=== PATIENT | female | born 1955 | race Hispanic/Latino ===

== ENCOUNTER 2022-08-03 23:36 | Emergency (ER) | payer MEDICARE ==
[~2022-08-03] VITALS: Ht 154.9 cm; Wt 79.5 kg
[2022-08-04] LABS: BASOPHILS % (AUTO) 0.5 % (0.0-5.0); EOSINOPHILS % (AUTO) 1.6 % (0.0-8.0); HEMATOCRIT 43.8 % (36-48); LYMPHOCYTES % (AUTO) 28.1 % (21.0-51.0); MEAN CORPUSCULAR HEMOGLOBIN 31.7 pg (27.0-33.0); MEAN CORPUSCULAR HGB CONC 34.5 g/dL (32.0-36.0); MONOCYTES % (AUTO) 8.4 % (3.0-13.0); NEUTROPHILS % (AUTO) 61.1 % (40.0-77.0); PLATELET COUNT (AUTO) 245 K/uL (130-400); RED BLOOD CELL COUNT(AUTO) 4.76 MIL/uL (4.00-5.50); RED CELL DISTRIBUTION WIDTH 12.3 % (11.0-15.5); WHITE BLOOD COUNT (AUTO) 12.5 K/uL (4.8-10.8)
[2022-08-04 00:07] LABS: INR 0.93 (0.85-1.15); PROTHROMBIN TIME 9.8 SEC (9.6-11.6)
[2022-08-04 00:08] LABS: PARTIAL THROMBOPLASTIN TIME 27.7 SEC (26.3-35.5)
[2022-08-04 00:10] LABS: POTASSIUM 3.8 mmol/L (3.5-5.1)
[2022-08-04 00:13] LABS: ALBUMIN 4.1 g/dL (3.5-5.0); MAGNESIUM 1.8 mg/dL (1.80-2.40); TOTAL PROTEIN, SERUM 8.3 g/dL (6.0-8.3)
[2022-08-04 00:23] LABS: APPEARANCE,URINE CLOUDY (CLEAR); BILIRUBIN,URINE NEGATIVE (NEGATIVE); COLOR,URINE LIGHT-YELLOW (YELLOW); GLUCOSE, URINE (UA) NEGATIVE (NEGATIVE); KETONES,URINE NEGATIVE (NEGATIVE); LEUKOCYTE ESTERASE ,URINE 25 Leu/uL (NEGATIVE); NITRATE,URINE NEGATIVE (NEGATIVE); OCCULT BLOOD,URINE NEGATIVE (NEGATIVE); PH,URINE 5.5 (5.0-8.0); PROTEIN,URINE NEGATIVE (NEGATIVE); UROBILINOGEN,URINE 0.2 mg/dL (0.2-1.0)
[2022-08-04 00:30] LABS: BACTERIA,URINE RARE /HPF (None Seen); MUCUS,URINE RARE LPF (None Seen); RBC,URINE 0-1 /HPF (0-1); SQUAMOUS EPITHELIAL CELL,UR RARE /HPF (0-2)
[2022-08-04] MEDS ORDERED: ONDANSETRON 4MG INJ IVP ONE (00:30)
[2022-08-04] MEDS ORDERED: MORPHINE 4 MG SYG IVP ONE (00:30)
[2022-08-04] MEDS ORDERED: MORPHINE 4 MG SYG ONE (00:30)
[2022-08-04] MEDS ORDERED: ONDANSETRON 4MG INJ ONE (00:30)
[2022-08-04] MEDS ORDERED: DICYCLOMINE 20MG (10MG/ML) AMP IM SCH (02:30)
[2022-08-04] MEDS ORDERED: DICY20TA2 PO (02:43)
[2022-08-04 03:06] VITALS: BP 149/79
== END 2022-08-04 03:07 | disposition home or self-care (01) ==
LOC: EDH 23:36
DX: K52.9 Noninfective gastroenteritis and colitis, unspecified (principal); Z94.4 Liver transplant status
CPT/HCPCS: 99285; 71045; 83735; 84484; 80053; 83690; 85025; 85610; 85730; 81001; 36415; 93005; 74176; 96374; 96375; 96372; J2405; J2270; J0500